=== PATIENT | female | born 2000 ===

== ENCOUNTER 2025-08-31 06:40 | Emergency (ER) | payer OTHER, SELFPAY ==
--- NOTE | ~2025-08-31 | CT_ITS ---
EXAMINATION: CT ABDOMEN PELVIS WITH IV CONTRAST HISTORY: RLQ pain COMPARISON: There are no prior studies for available comparison. TECHNIQUE: CT scan of the abdomen and pelvis was performed following administration of 85 mL Omnipaque 350 using standard departmental protocol. Coronal and sagittal reformatted images were generated and reviewed. Oral contrast material was not administered at the request of the referring physician. This CT exam was performed with one or more of the following dose reduction techniques: automated exposure control, adjustment of the mA and/or kV according to patient size, use of iterative reconstruction technique. DLP: 289 mGy-cm FINDINGS: LOWER CHEST: The visualized lung bases are clear. There is no pleural effusion. CARDIOVASCULATURE: The heart is normal in size. There is no pericardial effusion. LIVER: The liver is normal in size and contour. No liver mass is identified. The hepatic and portal veins are patent. GALLBLADDER / BILE DUCTS: The gallbladder is contracted, without evidence of calcified stones. There is no intra or extrahepatic biliary ductal dilatation. SPLEEN: The spleen is normal in size. No focal splenic lesion is identified. PANCREAS: The pancreas is unremarkable in appearance. ADRENAL GLANDS: Within normal limits. KIDNEYS/RETROPERITONEUM: No renal calculi are identified. There is no hydronephrosis. No renal masses are identified. LYMPH NODES: No abdominal or pelvic lymphadenopathy. VASCULATURE: The abdominal aorta is normal in caliber. MESENTERY/PERITONEUM: No free fluid. No masses. There is no free intraperitoneal gas. STOMACH: There is thickening of the pylorus. SMALL BOWEL: The small bowel is normal in caliber. COLON: The colon is unremarkable. APPENDIX: The appendix is not seen, however no inflammatory changes are seen adjacent to the cecum. URINARY BLADDER/PELVIC ORGANS: The urinary bladder is unremarkable. The uterus and ovaries are unremarkable. BONES / SOFT TISSUES: No suspicious bony or soft tissue abnormalities. CT/CT abdomen pelvis w IV con IMPRESSION: 1. The appendix is not visualized. 2. Thickening of the pylorus of the stomach. Findings could represent gastritis. Electronically signed by: Duglas Moncada MD 08/31/2025 08:23 AM EDT
[2025-08-31 06:43] VITALS: BP 116/72; PULSE 86; RESP 16; TEMP 37; O2SAT 98; BMI 17.8
[2025-08-31 07:04] LABS: MANUAL DIFF FLAG NO
[2025-08-31] MEDS: Lactated Ringers 1,000 ML 999 ML IV (07:04)
[2025-08-31 07:10] LABS: Hematocrit 38.9 % (37.0-47.0); Hemoglobin 12.6 g/dl (12.0-16.0); Imm Gran Abs Auto 0.02 X10*3/uL (0.00-0.03); Imm Gran Pct Auto 0.2 % (0.0-0.4); Lymphocytes Absolute Auto 3.2 X10*3/uL (1.2-4.9); Mean Corpuscular HGB Conc 32.4 g/dl (31.0-35.0); Mean Corpuscular Hemoglobin 27.3 pg (27.0-33.0); Mean Corpuscular Volume 84.4 fL (80.0-98.0); NRBC Abs Auto 0.000 X10*3/uL (0.0-0.012); NRBC Pct Auto 0.0 /100WBC (0.0-0.2); Platelet Count 290 X10*3/uL (160-400); Red Blood Count 4.61 X10*6/uL (4.20-5.50); White Blood Count 8.2 X10*3/uL (4.8-10.8)
--- NOTE | 2025-08-31 07:20 | ED.ABDPAIN ---
HPI - Abdominal Pain General Chief Complaint: Abdominal Pain Stated Complaint: right side abd pain Time Seen by Provider: 08/31/25 06:50 Source: patient and old records reviewed Mode of arrival: ambulatory Limitations: no limitations History of Present Illness ED Provider: MAXI MICHAELS narrative: 25 yo female with no sig PMH no prior abdominal surgeries here with c/o lower R sided abdominal pain since yesterday now worsening with some nausea. No fevers, diarrhea, urinary symptoms, vaginal discharge. She has not had this before. She was able to eat dinner last night. She has not had this before. She took no medications for pain prior to arrival. No mass felt. MD elicited complaint: abdominal pain Pertinent past history: none Onset (ago): day(s) (1) Pain Consistency: constant Location: RLQ Severity: moderate Quality: aching Radiation: none Migration to: no migration Exacerbating factors: movement Relieving factors: nothing Associated symptoms: nausea Related Data Previous Rx's ?Medication ?Instructions ?Recorded famotidine 20 mg tablet (Pepcid) 20 mg PO BID abdominal discomfort 08/31/25 14 days #28 tabs ondansetron 4 mg disintegrating 4 mg PO Q8H PRN nausea and 08/31/25 tablet vomiting #20 tabs sucralfate 100 mg/mL oral 10 ml PO BID 7 days #140 mL 08/31/25 suspension (Carafate) Allergies Allergy/AdvReac Type Severity Reaction Status Date / Time No Known Allergies Allergy Verified 08/31/25 06:46 Review of Systems Review of Systems Constitutional : No Weight loss, No Fever, No Chills ENT/Mouth : No sore throat, No Rhinorrhea Eyes: No Swelling, No Redness Cardiovascular : No Chest Pain, No SOB, NoEdema Respiratory : No Cough, No Sputum, No Wheezing Gastrointestinal : Positive Nausea, no Vomiting, no Diarrhea, positive abdominal Pain, No Hematochezia, No Melena Genitourinary : No Dysuria, No Urinary Frequency, No Hematuria, No Urgency Musculoskeletal : No joint pain, No Myalgias, No Joint Swelling Skin : No Skin Lesions, No rash All other systems reviewed and are negative. [facility] Past Medical History Attestation statement: The following information was validated with the patient. Source: old records reviewed Medical History No pertinent past medical history Social History Social History (Updated 08/31/25 @ 07:28 by Andra Lara DO) Patient Tobacco Use Status: Never used Tobacco Advance Directives: No Advance Directives Information Provided: Yes Physical Exam ED Vital Signs: Vital Signs - 24 hr 08/31/25 06:43 Temperature 98.6 F Pulse Rate 86 Respiratory Rate 16 Blood Pressure 116/72 Pulse Oximetry 98 Oxygen Delivery Method Room Air BMI result Body Mass Index 17.8 Appearance: Alert. Oriented X3. No acute distress. Eyes: Pupils equal, round and reactive to light. ENT: Pharynx normal. Neck: Normal inspection. Neck supple. CVS: Normal heart rate and rhythm. Pulses normal. Respiratory: No respiratory distress. Breath sounds normal. Abdomen: Soft and moderate ttp in RLQ but no rebound or guarding Skin: Skin warm and dry. Normal skin color. Normal skin turgor. Extremities: No lower extremity edema. No calf ttp Neuro: Oriented X 3. No motor deficit. No sensory deficit. Course Course Course Narrative: no wbc count no vomiting able to eat doubt appendicits Medical Decision Making Medical Decision Making [facility] Narrative: 25 yo female with no sig PMH no prior abdominal surgeries here with c/o RLQ pain but no vomiting, fevers, diarrhea, urinary symptoms at this time will need labs, CT scan for appendicitis/cyst/renal colic. IV toradol for pain Differential Diagnosis Differential Diagnoses: The differential diagnosis associated with the presentation includes appendicitis/cyst/renal colic. Admission/Observation Consideration of admission/observation: Escalation of care including admission/observation considered improved, will start on pepcid and refer to PCP. overall not toxic, labs reassuring CT scan gastritis Lab Data [facility] Lab Attestation statement: I reviewed the patient's lab results. 08/31/25 06:59 08/31/25 06:59 Labs: Lab Results 08/31/25 Range/Units 06:59 WBC 8.2 (4.8-10.8) X10*3/uL RBC 4.61 (4.20-5.50) X10*6/uL Hgb 12.6 (12.0-16.0) g/dl Hct 38.9 (37.0-47.0) % MCV 84.4 (80.0-98.0) fL MCH 27.3 (27.0-33.0) pg MCHC 32.4 (31.0-35.0) g/dl RDW 12.9 (11.0-16.0) % Plt Count 290 (160-400) X10*3/uL MPV 11.0 (9.4-12.3) fL Immature Gran % (Auto) 0.2 (0.0-0.4) % Neut % (Auto) 51.2 (45-73) % Lymph % (Auto) 38.9 (20-40) % [place] % (Auto) 8.0 (2-11) % Eos % (Auto) 1.3 (0-4) % Baso % (Auto) 0.4 (0-2) % Lymph # (Auto) 3.2 (1.2-4.9) X10*3/uL [place] # (Auto) 0.7 (0.1-1.2) X10*3/uL Eos # (Auto) 0.1 (0.0-0.4) X10*3/uL Baso # (Auto) 0.0 (0.0-0.2) X10*3/uL Abs Immat Gran (auto) 0.02 (0.00-0.03) X10*3/uL Absolute Neuts (auto) 4.2 (2.0-8.3) x10*3/uL Absolute Nucleated RBC 0.000 (0.0-0.012) X10*3/uL Nucleated RBC % (auto) 0.0 (0.0-0.2) /100WBC Sodium 139 (135-145) mmol/L Potassium 3.7 (3.3-5.1) mmol/L Chloride 109 H (96-108) mmol/L Carbon Dioxide 24 (22-29) mmol/L Anion Gap 10 L (12-20) BUN 11 (9-16) mg/dL Creatinine 0.89 (0.5-1.4) mg/dL Estim Creat Clear Calc 78.5 Estimated GFR > 60 Random Glucose 93 (60-115) mg/dL Calcium 8.5 (8.4-10.2) mg/dL Magnesium 2.3 (1.6-2.6) mg/dL Total Bilirubin 0.3 (0.0-1.0) mg/dL Direct Bilirubin 0.1 (0.0-0.5) mg/dL AST 26 (5-31) U/L ALT 16 (0-31) U/L Alkaline Phosphatase 66 (39-117) U/L Total Protein 6.6 (6.5-8.0) g/dL Albumin 4.3 (3.5-5.0) g/dL Lipase 44 (8-78) U/L Beta HCG, Quant < 2 mIU/mL Independent Interpretation I performed an independent interpretation of an: CT Scan (gastritis) Radiology Impression Discussion of test interpretation with radiology: I have reviewed the radiologist's reading. Independent Historian Clinical information obtained from an independent historian. History obtained from or confirmed by: Spouse External Record Review External record reviewed: Outpatient record Prescription Management I considered prescription management with: Pain Medication and Other Medications Administered Discontinued Medications Generic Name Dose Route Start Last Admin Trade Name Freq PRN Reason Stop Dose Admin Al Hydroxide/Mg Hydroxide 15 ml 08/31/25 08:27 08/31/25 08:52 Magnesium Hydrox/Alum Hydrox 30 Ml Oral.Susp PO 08/31/25 08:28 15 ml ONCE ONE Administration Lactated Ringer's 1,000 mls @ 999 mls/hr 08/31/25 06:50 08/31/25 08:45 Lr IV 08/31/25 07:50 Infused .Q1H1M ONE Infusion Iohexol 85 ml 08/31/25 08:08 08/31/25 08:09 Iohexol 350 Mg/Ml 100 Ml Infus..Btl IV 08/31/25 08:09 85 ml ONCE ONE Administration Ketorolac Tromethamine 15 mg 08/31/25 06:50 08/31/25 07:04 Ketorolac Tromethamine 15 Mg/Ml Vial IVPUSH 08/31/25 06:51 15 mg ONCE ONE Administration Lidocaine HCl 15 ml 08/31/25 08:27 08/31/25 08:52 Lidocaine Hcl Viscous 2 % 15 Ml Solution MUCOUS MEM 08/31/25 08:28 15 ml ONCE ONE Administration Ondansetron HCl 4 mg 08/31/25 06:50 08/31/25 07:04 Ondansetron Hcl 4 Mg/2 Ml Vial IVPUSH 08/31/25 06:51 4 mg ONCE ONE Administration Discharge Plan Discharge Clinical Impression: Gastritis Qualifiers: Gastritis type: unspecified gastritis Chronicity: acute Gastritis bleeding: without bleeding Qualified Code(s): K29.00 - Acute gastritis without bleeding Patient Disposition: Home, Self-Care Instructions: Gastritis (ED) Additional Instructions: labs reassuring CT scan for gastritis/inflammation of stomach return for any worsening symptoms or concerns avoid motrin ibuprofen, stau upright after eating for 45 minutes return for worsening pain, black or bloody stools or any other concerns take all medications as prescribed eat a diet and avoid greasy fatty foods for [address] scan results: Thickening of the pylorus of the stomach. Findings could represent gastritis. Prescriptions: New sucralfate [Carafate] 100 mg/mL suspension 10 ml PO BID 7 Days Qty: 140 0RF famotidine [Pepcid] 20 mg tablet 20 mg PO BID 14 Days Qty: 28 0RF ondansetron 4 mg tablet,disintegrating 4 mg PO Q8H PRN (Reason: nausea and vomiting) Qty: 20 0RF Stand Alone Forms: Work/School Release Print Language: Egyptian
[2025-08-31 07:27] LABS: Alanine Aminotransferase 16 U/L (0-31); Albumin Level 4.3 g/dL (3.5-5.0); Alkaline Phosphatase 66 U/L (39-117); Anion Gap 10 (12-20); Aspartate Amino Transferase 26 U/L (5-31); Blood Urea Nitrogen 11 mg/dL (9-16); Calcium 8.5 mg/dL (8.4-10.2); Carbon Dioxide 24 mmol/L (22-29); Chloride 109 mmol/L (96-108); Creatinine Clr Calc Pharmacy 78.5; Estimated Glomerular Filt Rate > 60; Lipase 44 U/L (8-78); Magnesium 2.3 mg/dL (1.6-2.6); Potassium 3.7 mmol/L (3.3-5.1); Sodium 139 mmol/L (135-145); Total Protein 6.6 g/dL (6.5-8.0)
--- OUTSIDE RECORDS SUMMARY | 2025-08-31 07:54 | XMS_ITS | Encounter Summary ---
Author Organization [facility] Address [address] [place] [id number] Phone Care Team Providers Care Marketing And Development Coordinator Name Role Phone Kalie Thomson MD Primary Care Provider [phone] Reason for Visit * Reason Comments Med Refill Encounter Details Date Type Department Care Team (Late st Contact Info) Description 06/11/2018 Refill [facility] - [place] [address] [place] [address] Addis Croft NP [address] [place] [address] Scabies Social History Tobacco Use Types Packs/Day Years Used Date Smoking Tobacco: Never Smokeless Tobacco: Former Comments:0.3 nicotine once, one hit Alcohol Use Standard Drinks/Week Comments No 0 (1 standard drink = 0.6 oz pur e alcohol) Comments No Sex and Gender Information Value Date Recorded Sex Assigned at Not on file Legal Sex Female 4:57 PM EST Gender Identity Female 12/04/2020 9:31 AM EST Sexual Orientation Not on file documented as of this encounter Plan of Treatment Not on file documented as of this encounter Visit Diagnoses Diagnosis Scabies documented in this encounter Care Teams Marketing And Development Coordinator Relationship Specialty Start Date End Date Kalie Thomson MD [address] [place] [address] PCP - General 12/31/16 06/13/23 documented as of this encounter
--- OUTSIDE RECORDS SUMMARY | 2025-08-31 07:54 | XMS_ITS | Encounter Summary ---
Author Organization [facility] Address [address] [place] [address] Phone Care Team Providers Care Track Leader Name Role Phone Kalie Thomson MD Primary Care Provider [phone] Reason for Visit * Reason Comments Med Refill Encounter Details Date Type Department Care Team (Late st Contact Info) Description 12/05/2018 Refill [facility] - [place] [address] [place] [address] Kalie Thomson MD [address] [place] [address] Adjustment disorder with depressed mood Social History Tobacco Use Types Packs/Day Years Used Date Smoking Tobacco: Never Smokeless Tobacco: Former Comments:0.3 nicotine once, one hit Alcohol Use Standard Drinks/Week Comments No 0 (1 standard drink = 0.6 oz pur e alcohol) Hunger/Food Answer Date Recorded No 11/28/2018 Stable Housing Answer Date Recorded 0 11/28/2018 Transportation Concerns Answer Date Rec orded No 11/28/2018 Hazards in Home Answer Date Recorded No 11/28/2018 Financing Utilities Answer Date Recorde d No 11/28/2018 Safety at Home Answer Date Recorded No 11/28/2018 Outside Support Answer Date Recorded No 11/28/2018 Understanding Health Concerns Answer Da te Recorded No 11/28/2018 Financing Health Concerns Answer Date R ecorded No 11/28/2018 Missing School or Work Answer Date Stanislav rded No 11/28/2018 Comments No Sex and Gender Information Value Date Recorded Sex Assigned at Not on file Legal Sex Female 4:57 PM EST Gender Identity Female 12/04/2020 9:31 AM EST Sexual Orientation Not on file documented as of this encounter Miscellaneous Notes * Telephone Encounter - Kalie Thomson MD - 12/07/2018 12:03 PM EST She isn't taking this mediacation documented in this encounter Plan of Treatment Not on file documented as of this encounter Visit Diagnoses Diagnosis Adjustment disorder with depressed mood documented in this encounter Care Teams Track Leader Relationship Specialty Start Date End Date Kalie Thomson MD [address] [place] [address] PCP - General 12/31/16 06/13/23 documented as of this encounter
--- OUTSIDE RECORDS SUMMARY | 2025-08-31 07:54 | XMS_ITS | Clinical Summary ---
Author Organization [facility] Address [address] [place] [address] Phone Care Team Providers Care Head Pumper Name Role Phone Unavailable Primary Care Provider Unavailabl e Allergies No known active allergies Medications Multiple Vitamins-Mineral s (MULTIVITAMIN ADULTS PO) Take by mouth. Active medroxyPROGESTER one 150 MG/ML injectionIndicat ions:Irregular periods INJECT 1ML INTO THE MUSCLE EVERY 3 MONTHS 1 mL 09/10/2021 Active Active Problems Problem Noted Date Diagnosed Date Other chest pain 07/13/2020 Assessment & Plan (07/13/2020 4:55 PM EDT): 2 short self resolving episodes associated with certain foods and stress with a very reassuring exam. I suspect the she is having some reflux along with stress. Discussed using tums prn and how to reduce stress in her life. She will contact her former therapist. She will call me back if these symptoms worsen Breakthrough bleeding on depo provera 02/08/2019 Overview (03/05/2019): Failed NSAIDs x3 days Will add estrogen patch for up to one month, f/u with pipe straightener if not improved Underweight 08/07/2018 Abdominal pain 04/17/2018 Assessment & Plan (04/20/2018 4:24 PM EDT): Improved, and with benign exam today. Assessment & Plan (04/17/2018 10:40 AM EDT): Symptomatic care. Look for triggers. Return on Friday for recheck and medication start Adjustment disorder with depressed mood 07/20/20 17 Overview (07/20/2017): Since break up with boyfriend. She has lost her appetite. Assessment & Plan (11/23/2018 4:58 PM EST): Mood has been good. Assessment & Plan (10/12/2018 10:36 AM EST): Patient is in counseling. She has a host of ongoing major life stressors. Baseline PHQ-9 = 12. Discussed adding medication into her treatment regimen. Assessment & Plan (04/20/2018 4:24 PM EDT): Will be seeing a therapist tomorrow. Assessment & Plan (04/17/2018 5:36 PM EDT): Depression screening concerning -- referred immediately to Crisis. Dad said he would bring her there. Assessment & Plan (09/11/2017 11:44 AM EDT): She is eating better now since her break up, but she is still coping with some interpersonal problems with friends. Irregular periods 07/20/2017 Overview (07/20/2017): Associated with LLQ tenderness and pain. Normal pelvic ultrasound and negative test June 2017 Assessment & Plan (11/23/2018 4:56 PM EST): On Depo Assessment & Plan (04/17/2018 5:36 PM EDT): Depo-Provera ordered. Patient to sweet pickle maker and return here for administration. Appointment scheduled for Friday Assessment & Plan (09/11/2017 11:43 AM EDT): Discussed options for contraception and period management. She thinks that she won't be regular about taking daily OCPs, and isn't interested in an implant, so she would like to go with the Depo shot every 12 weeks. Discussed benefits and side effects of medication. Attention-deficit hyperactivity disorder, combin ed type 01/16/2016 Assessment & Plan (11/23/2018 4:57 PM EST): Denies having problems with focus at this time. Assessment & Plan (09/11/2017 11:41 AM EDT): Teen is satisfied with her school performance at this time without medication Dysmenorrhea 08/04/2015 Assessment & Plan (11/23/2018 4:55 PM EST): Improved on Depo Resolved Problems Problem Noted Date Diagnosed Date Resolved Date Substance use disorder 10/12/201811/23 Overview (10/12/2018): marijuana Other constipation 05/01/2018 9 Sleep disturbance 09/02/2016 11/23/2018 Assessment & Plan (09/11/2017 11:41 AM EDT): Doing well. Weight loss 02/23/2016 11/23/2018 Assessment & Plan (09/11/2017 11:41 AM EDT): Weight is essentially stable since last visit (today's weight in gown, weight at last visit in clothing). Immunizations Immunization Administration Dates Next Due DTaP 09/11/2004, 1,03/03/2001,12/09,2000 H1N1 11/14/2009 HPV, Quadrivalent 04/15/2014,06/14/2013,04/09/20 13 Hep B, ped/adol 06/02/2001,2000,2000 Hib (PRP-T) 03/31/2002, 2,03/03/2001,12/23,2000 IPV 09/11/2004, 2,2000,09/30 Influenza 08/28/2009,08/11/2008 Influenza, injectable, quadr ivalent, preservative free 11/23/2018,09/09/2017,09/02/2016,09/08 Influenza, injectable, trivalent 12/17/2012 MMR 09/11/2004,08/25/2001 Meningococcal Conj (Menactra) MCV4P 09/09/2017,0 04/09/2013 Pneumococcal Conjugate 2000,2000 Tdap 04/09/2013 Varicella 06/14/2008,08/25/2001 Social History Tobacco Use Types Packs/Day Years Used Date Smoking Tobacco: Never Smokeless Tobacco: Former Comments:0.3 nicotine once, one hit Alcohol Use Standard Drinks/Week Comments No 0 (1 standard drink = 0.6 oz pur e alcohol) Hunger/Food Answer Date Recorded No 08/05/2020 Stable Housing Answer Date Recorded No 08/05/2020 Transportation Concerns Answer Date Rec orded No 08/05/2020 Hazards in Home Answer Date Recorded No 09/22/2020 Financing Utilities Answer Date Recorde d No 09/22/2020 Safety at Home Answer Date Recorded No 09/22/2020 Outside Support Answer Date Recorded No 09/22/2020 Understanding Health Concerns Answer Da te Recorded No 09/22/2020 Financing Health Concerns Answer Date R ecorded No 09/22/2020 Missing School or Work Answer Date Stanislav rded No 09/22/2020 Comments No Sex and Gender Information Value Date Recorded Sex Assigned at Not on file Legal Sex Female 4:57 PM EST Gender Identity Female 12/04/2020 9:31 AM EST Sexual Orientation Not on file Last Filed Vital Signs Vital Sign Reading Time Taken Comments Blood Pressure 117/68 06/20/2021 11:10 AM EDT Pulse 110 03/23/2021 1:59 PM EDT Temperature 36.8 C (98.2 F) 06/20/2021 11:10 AM EDT Respiratory Rate - - Oxygen Saturation 95% 07/13/2020 4:16 PM EDT Inhaled Oxygen Concentration - - Weight 51.2 kg (112 lb 12.8 oz) 021 11:10 AM EDT Height 161.3 cm (5' 3.5 ) 10/18/2020 11 :25 AM EST Body Mass Index 19.67 10/18/2020 11:25 AM EST Plan of Treatment Health Maintenance Due Date Last Done Comments DTaP,Tdap,and Td Vaccines (6 - Td or Tdap) 04/09/2023 04/09/2013, 09/11/2004, 03/31/2001, Additional history exists Influenza Vaccines (#1) 2025 11/23/19 19, 09/09/2017, 09/02/2016, Additional history exists COVID-19 Vaccine ( season) 2025 Pneumococcal Vaccine Aged Out 2000, 09/30/20 00 No longer eligible based on patient's age to complete this topic Hepatitis B Vaccines Completed 06/02/2001, 2000, 2000 HIB Vaccines Completed 03/31/2002, 02/08, 03/03/2001, Additional history exists IPV Vaccines Completed 09/11/2004, 02/08, 2000, Additional history exists MMR Vaccines Completed 09/11/2004, 08/25/2001 Varicella Vaccines Completed 06/14/2008, 08/25/2001 HPV Vaccines Completed 04/15/2014, 03/2013, 04/09/2013 Meningococcal Vaccine Completed 09/09/2017, 013 Hepatitis A Vaccines Aged Out No long er eligible based on patient's age to complete this topic Men B Vaccine Aged Out No longer elig ible based on patient's age to complete this topic Procedures * Due to [place] [employer] law, this organization might not be sharing sensitive test results. Procedure Name Priority Date/Time Associated Diagnosis Comments CHLAMYDIA AND GONORRHEA, AMPLIFIED Routine 02/08/2019 4:03 PM EDT Breakthrough bleeding on depo provera from Last 3 Months or Most Recently Relevant to Health Maintenance Results * Due to [place] [employer] law, this organization might not be sharing sensitive test results. * Chlamydia and Gonorrhoea, Amplified (02/08/2019 4:03 PM EDT) Chlamydia trachomatis RNA, TMA Not Detected Not Detected 02/09/2019 1:19 PM EDT [facility] Neisseria gonorrhoeae, GIOVANY Not Detected Not Detected 02/09/2019 1:19 PM EDT [facility] Specimen Type URINE 02/09/2019 1:19 PM EDT [facility] Urine 02/08/2019 4:03 PM EDT 02/08/2019 5:19 PM EDT us Erin Zapata MD LAB MICROBIOLOGY - GENERAL ORDER CASSY Final Result [facility] from Last 3 Months or Most Recently Relevant to Health Maintenance
--- OUTSIDE RECORDS SUMMARY | 2025-08-31 07:54 | XMS_ITS | Encounter Summary ---
Author Organization [facility] Address [address] [place] [address] Phone Care Team Providers Care Ship Pilot Dispatcher Name Role Phone Kalie Thomson MD Primary Care Provider [phone] Encounter Details Date Type Department Care Team (Late st Contact Info) Description 06/18/2017 Conversion Encounter [facility] - [address], [address] [place] [address] Kalie Thomson MD [address] [place] [address] Social History Tobacco Use Types Packs/Day Years Used Date Smoking Tobacco: Never Assessed Comments Unknown Sex and Gender Information Value Date Recorded Sex Assigned at Not on file Legal Sex Female 4:57 PM EST Gender Identity Female 12/04/2020 9:31 AM EST Sexual Orientation Not on file documented as of this encounter Plan of Treatment Not on file documented as of this encounter Visit Diagnoses Not on filedocumented in this encounter Care Teams Ship Pilot Dispatcher Relationship Specialty Start Date End Date Kalie Thomson MD [address] [place] [address] PCP - General 12/31/16 06/13/23 documented as of this encounter
[2025-08-31] MEDS: iohexoL 350 MG/ML 100 ML INFUS..BTL 85 ML IV (08:09)
[2025-08-31] MEDS: Magnesium Hydrox/Alum Hydrox 30 ML ORAL.SUSP 15 ML PO (08:52)
[2025-08-31] MEDS: Lidocaine HCl Viscous 2 % 15 ML SOLUTION MUCOUS MEM (08:52)
[2025-08-31 09:17] VITALS: BP 123/85; PULSE 79; RESP 16; O2SAT 99
[2025-08-31 09:20] VITALS: TEMP 36.8
[2025-08-31 09:32] LABS: Appearance Urine Clear; Glucose Urine UA Negative (Negative); PH 7.0 (5.0-9.0); Specific Gravity - Urine >= 1.030 (1.005-1.025)
[2025-08-31 09:49] VITALS: BP 122/90; PULSE 80; RESP 16; TEMP 36.1; O2SAT 100
== END 2025-08-31 09:58 | disposition home or self-care (01) ==
PROVIDERS: Emergency Provider Emergency Medicine
DX: K29.00 Acute gastritis without bleeding (principal); R10.21 Pelvic and perineal pain right side; R11.0 Nausea; Z79.899 Other long term (current) drug therapy
CPT/HCPCS: 36415; 74177; 80048; 80076; 81003; 83690; 83735; 84702; 85025; 99284; J1885; J2405; J7120; Q9967

== ENCOUNTER → 2025-08-31 06:50 | Outpatient (BNV) | payer OTHER, SELFPAY | PROVIDERS: Emergency Provider Emergency Medicine; Visit Provider Radiology Diagnostic Radiology | DX: K31.89 Other diseases of stomach and duodenum (principal) | CPT/HCPCS: 74177 ==